=== PATIENT | male | born 1945 | race Caucasian/White ===

== ENCOUNTER 2022-05-31 10:38 | Emergency (ER) | payer MEDICARE ==
[~2022-05-31] VITALS: Ht 172.7 cm; Wt 68.0 kg
[~2022-05-31 10:38] MED LIST: DOCU250C14 PO
[2022-05-31 11:00] VITALS: BP 123/80
[2022-05-31 11:15] LABS: BASOPHILS % 0.5 % (0.0-2.0); EOSINOPHILS % 4.2 % (0.0-5.0); HEMATOCRIT. 40.9 % (42.0-52.0); HEMOGLOBIN. 14.1 g/dL (14.0-18.0); LYMPHOCYTES % 25.8 % (20.0-50.0); MEAN CORPUSCULAR HEMOGLOBIN 33.7 pg (28.0-32.0); MEAN CORPUSCULAR VOLUME 97.5 fL (80.0-94.0); MEAN PLATELET VOLUME 8.9 fl (7.4-10.4); MONOCYTES % 7.7 % (2.0-8.0); NEUTROPHILS % 61.8 % (40.0-76.0); PLATELET 203 x1000/uL (130-400); RED CELL DISTRIBUTION WIDTH 13.1 % (11.6-14.6)
[2022-05-31 11:24] LABS: PROTHROMBIN TIME 11.1 sec (9.6-11.0)
[2022-05-31 11:32] LABS: CHLORIDE 104 mEq/L (98-107)
== END 2022-05-31 11:59 | disposition left against medical advice (07) ==
LOC: ER 10:38
DX: R55 Syncope and collapse (principal); V18.4XXA Pedal cycle driver injured in noncollision transport accident in traffic accident, initial encounter; Y93.89 Activity, other specified; Y92.488 Other paved roadways as the place of occurrence of the external cause
CPT/HCPCS: 36415; 80053; 83735; 84484; 85025; 93005; 99284